=== PATIENT | male | born 1995 | race Caucasian/White ===

== ENCOUNTER 2022-09-26 02:36 | Emergency (ER) | payer BC, SELFPAY ==
[2022-09-26 02:42] VITALS: BP 134/98; PULSE 82; RESP 20; O2SAT 96; BMI 21.9
[2022-09-26] MEDS: KETOROLAC 30 MG/ML inj IM (03:04)
[2022-09-26 03:14] VITALS: RESP 20
--- NOTE | 2022-09-26 03:15 | ED_ITS ---
HPI - Dental/Oral General Date Seen: 09/26/22 Chief complaint: Dental/Oral/Mouth Injury/Pain Stated complaint: Mouth Pain Time Seen by Provider: 09/26/22 02:44 Source: patient Mode of arrival: ambulatory Limitations: no limitations History of Present Illness HPI Narrative: patient is a 27-year-old gentleman who suffers from right upper tooth pain, this is been for the last 36 hours, is not associated with any swelling, any problems with mouth opening, he did take some leftover hydrocodone he had at home, along with Tylenol ibuprofen with no rim prove mint of his pain. He tells me thinks he has a chipped tooth there, he presents the [place] f Teeth map: 1. A very carious tooth, that is old, there is no acute issue bleeding, s welling around the gingiv Onset (ago): day(s) Duration: constant Severity: severe Relieving factors: nothing Exacerbating factors: cold, heat and swallowing Context: history of dental caries and poor dental care Treatment prior to arrival: none Related Data Home Medications Medication Instructions Recorded Confirmed No Known Home Medications 09/26/22 09/26/22 Allergies Allergy/AdvReac Type Severity Reaction Status Date / Time No Known Drug Allergies Allergy Verified 09/26/22 02:53 Review of Systems Status of ROS: Reports: 6 or more systems reviewed and unremarkable except as noted in History and below [facility] Social History Smoking Status: Never smoker Do you use any of these nicotine containing products: None How often do you have a drink containing alcohol: monthly or less AUDIT-C Alcohol total score: 1 Non-prescribed substance use: denies use Exam Narrative: Exam Narrative: patient is seen in room 4, he appears to be bent over, there is no asymmetry of his face, mouth opening is normal, very carious tooth is seen, no swelling of the gingiva, swelling to his gums, suggestive of abscess. No lymphadenopathy in the a Const: Vital Signs, click to edit/add: Vital Signs - 24 hr 09/26/22 02:42 Pulse Rate [Bilate ral] 82 Respiratory Rate 20 Blood Pressure [Le ft Upper Arm] 134/98 H Pulse Oximetry 96 Oxygen Delivery Me thod Room Air Course Vital Signs Vital signs: Initial Vital Signs Temperature Source Temporal Artery Scan 09/26/22 02:42 Pulse Rate 82 09/26/22 02:42 Respiratory Rate 20 09/26/22 02:42 Blood Pressure 134/98 H 09/26/22 02:42 Blood Pressure Mean 110 09/26/22 02:42 Pulse Oximetry 96 09/26/22 02:42 Oxygen Delivery Method 09/26/22 02:42 Vital Signs Pulse Rate 82 09/26/22 02:42 Respiratory Rate 20 09/26/22 02:42 Blood Pressure 134/98 H 09/26/22 02:42 Pulse Oximetry 96 09/26/22 02:42 Oxygen Delivery Method 09/26/22 02:42 Pulse Rate 82 09/26/22 02:42 Respiratory Rate 20 09/26/22 02:42 Blood Pressure 134/98 H 09/26/22 02:42 Pulse Oximetry 96 09/26/22 02:42 Oxygen Delivery Method 09/26/22 02:42 MDM - Dental/Oral MDM Narrative Medical decision making narrative: patient is seen and assessed, I discussed with him that I can give him a shot of Toradol, put him on some antibiotics and he needs to follow up with the dentist tomorrow, review of the TOBACCO SIZER, shows the risk of 290. Medical Records Attestation: I reviewed the patient's medical records. Discharge Plan Discharge Clinical Impression: Toothache Patient Disposition: Home, Self-Care Condition: Stable Instructions: Toothache (ED) Additional Instructions: home rest call dentist tomorrow, make appointment to get the tooth fixed. Take antibiotics as directed, Tylenol ibuprofen as needed. Prescriptions: No Action No Known Home Medications Follow Up/Referrals: Joyec Patton MD [Staff Physician] - Stand Alone Forms: [facility] Info Instructions
== END 2022-09-26 03:17 | disposition home or self-care (01) ==
PROVIDERS: Emergency Provider Family Medicine
DX: K08.89 Other specified disorders of teeth and supporting structures (principal)
CPT/HCPCS: 96372; 99282; 99283; J1885

== ENCOUNTER 2023-03-10 12:43 | Emergency (ER) | payer BC, SELFPAY ==
[2023-03-10 13:05] VITALS: BP 132/90; PULSE 75; RESP 20; TEMP 36.9; O2SAT 99; BMI 21.3
--- NOTE | 2023-03-10 14:03 | CRLHL7_ITS ---
For Patients: As a result of the Century Cures Act, medical imaging exams and procedure reports are released immediately into your electronic medical record. You may view this report before your referring provider. If you have questions, please contact your health care provider. INDICATION: Epigastric pain TECHNIQUE: Axial images were obtained from the diaphragm to the pubic symphysis. Reformats were obtained in the coronal and sagittal plane. IV Contrast: 89 cc Isovue 370 Oral Contrast: None COMPARISON: None. FINDINGS: Lower chest: Unremarkable. Liver: Unremarkable. Normal in size and attenuation. No masses. Gallbladder and bile ducts: Unremarkable. No stones or inflammation. No biliary dilatation. Spleen: Unremarkable. Normal in size without mass. Pancreas: Unremarkable. No mass or inflammation. Adrenal glands: Unremarkable. No nodules. Kidneys: Unremarkable. No masses, stones, or hydronephrosis. Vasculature: Unremarkable. GI tract: Unremarkable. No dilated bowel or focal inflammation. Pelvis: Moderate bladder distention. Bones: Unremarkable for age. IMPRESSION: 1. No dilated bowel or localized inflammation. 2. Moderate bladder distention. Please note that all CT scans at this facility use dose modulation, iterative reconstruction, and/or weight-based dosing when appropriate to reduce radiation dose to as low as reasonably achievable. Dictated by Jd Murillo MD @ 03/10/2023 3:42:58 PM (Electronically Signed)
--- NOTE | 2023-03-10 14:04 | ED_ITS ---
HPI - Abdominal Pain General Chief Complaint: Abdominal Pain Stated Complaint: Abdominal pain Time Seen by Provider: 03/10/23 13:51 History of Present Illness HPI narrative: This 27-year-old male comes in reporting abdominal pain that began 2 days ago. He was at a [facility], 2 days ago then began to have abdominal pain yesterday morning. He states that the pain is rather constant. The pain is in the mid abdomen and upper abdomen. He does not report any nausea, vomit ing, lightheadedness, shortness of breath, dysuria, or altered bowel function. He has not had any fevers. He states that the pain seems to worsen when he stands up straight. Related Data Previous Rx's Medication Instructions Recorded ketorolac 10 mg tablet 10 mg PO Q8H 5 days #15 tabs 03/10/23 pantoprazole 20 mg tablet,delayed 20 mg PO DAILY #20 tabs 03/10/23 release (Protonix) Allergies Allergy/AdvReac Type Severity Reaction Status Date / Time No Known Drug Allergies Allergy Verified 03/10/23 14:46 Review of Systems Status of ROS Reports: 10 or more systems reviewed and unremarkable except as noted in History and below Narrative Constitutional: No fevers, no weight gain or loss. Eyes: No discharge. No vision changes. HENT: No congestion, no sore throat, no ear pain. Cardiovascular: No chest pain, no palpitations. Respiratory: No shortness of breath, no wheezes, no cough. Gastrointestinal: No vomiting, no diarrhea. Abdominal pain as described above. Genitourinary: No dysuria, no hematuria. Musculoskeletal: Normal range of motion. Skin: No rashes, no pruritis. Neurological: No dizziness, weakness, sensory change, speech change. Endo/Heme/Allergies: No bruising or bleeding. No polydipsia. Pysch: no suicidality, no anxiety, no insomnia. All other systems reviewed and are negative. PFSH PFS Social History Smoking Status: Never smoker Do you use any of these nicotine containing products: None How often do you have a drink containing alcohol: monthly or less AUDIT-C Alcohol total score: 1 Non-prescribed substance use: denies use Exam Narrative: Exam Narrative: Constitutional: Well-developed, well-nourished, no acute distress. HEENT: Normocephalic, atraumatic. Neck: Normal range of motion. Nontender. Supple. Heart: Regular. No murmurs. Normal rate. Intact distal pulses. Lungs: Clear to auscultation. No chest discomfort. No wheezes, rhonchi, or rales. Abdomen: Normal bowel sounds. Tenderness in the mid abdomen and upper epigast lamar region. No rebound tenderness. Genitalia: Deferred. Back: No midline tenderness. Normal range of motion. Extremities: Normal range of motion. No injury. Skin: Intact. No rash. Warm. No erythema or pallor. Neurologic: No altered sensation. No weakness. Alert and oriented. Psychiatric: No suicidality. No anxiety or depression. No insomnia. Nursing notes and vitals signs are reviewed. Const: Vital Signs, click to edit/add: Vital Signs - 24 hr 03/10/23 13:05 Temperature 98.4 F Pulse Rate [Right Pulse Oximeter] 75 Respiratory Rate 20 Blood Pressure [Ri ght Upper Arm] 132/90 H Pulse Oximetry 99 Oxygen Delivery Me thod Room Air Course Vital Signs Vital signs: Initial Vital Signs Temperature 98.4 F 03/10/23 13:05 Temperature Source Temporal Artery Scan 03/10/23 13:05 Pulse Rate 75 03/10/23 13:05 Pulse Rhythm Regular 03/10/23 13:05 Pulse Strength 3+ Normal 03/10/23 13:05 Respiratory Rate 20 03/10/23 13:05 Blood Pressure 132/90 H 03/10/23 13:05 Blood Pressure Mean 104 03/10/23 13:05 Blood Pressure Position Sitting 03/10/23 13:05 Pulse Oximetry 99 03/10/23 13:05 Oxygen Delivery Method Room Air 03/10/23 13:05 Vital Signs Temperature 98.4 F 03/10/23 13:05 Pulse Rate 75 03/10/23 13:05 Respiratory Rate 20 03/10/23 13:05 Blood Pressure 132/90 H 03/10/23 13:05 Pulse Oximetry 99 03/10/23 13:05 Oxygen Delivery Method Room Air 03/10/23 13:05 Temperature 98.4 F 03/10/23 13:05 Pulse Rate 75 03/10/23 13:05 Respiratory Rate 20 03/10/23 13:05 Blood Pressure 132/90 H 03/10/23 13:05 Pulse Oximetry 99 03/10/23 13:05 Oxygen Delivery Method Room Air 03/10/23 13:05 MDM - Abdominal Pain MDM Narrative Medical decision making narrative: This patient comes in with upper epigastric abdominal pain. An IV was established and labs are acquired along with CT imaging. These all returned with reassuring findings. The patient states that [place] this pain began. He was riding on a roller coaster that was very bumpy and he thinks he may have strained some muscles in his abdomen. Additionally he has some history of reflux symptoms. I did prescribe Protonix and Toradol for symptomatic relief. He is okay to be discharged home. He was reassured with lab and imaging results. Lab Data Labs: Lab Results 03/10/23 Range/Units 14:39 WBC 4.47 L (4.50-11.00) K/uL RBC 5.39 (4.30-5.90) m/uL Hgb 15.6 (13.5-17.5) gm/dL Hct 46.5 (37.0-53.0) % MCV 86 (80-100) fL MCH 29 (26-34) pg MCHC 34 (32-36) gm/dL RDW Coeff of Damián 12.3 (11.5-15.5) % Plt Count 232 (140-440) K/uL Neut % (Auto) 59.1 (42.0-72.0) % Lymph % (Auto) 25.3 (20-44) % [place] % (Auto) 10.7 (0.0-11.0) % Eos % (Auto) 4.5 (0.0-7.0) % Baso % (Auto) 0.4 (0.0-3.0) % Neut # (Auto) 2.60 (1.7-7.0) K/uL Lymph # (Auto) 1.10 (0.90-2.90) K/uL [place] # (Auto) 0.50 (0.00-0.90) K/UL Eos # (Auto) 0.20 (0.00-0.50) K/uL Baso # (Auto) 0.00 (0.00-0.30) K/uL Sodium 135 (135-149) mmol/L Potassium 3.8 (3.6-5.1) mmol/L Chloride 101 (96-114) mmol/L Carbon Dioxide 28 (20-32) mmol/L BUN 7 (5-24) mg/dL Creatinine 0.7 (0.5-1.5) mg/dL Estimated Creat Clear 186.30 Estimated GFR 131 ml/min Glucose 108 (60-115) mg/dL Calcium 9.4 (8.4-10.6) mg/dL Total Bilirubin 1.3 (0.1-1.5) mg/dL Direct Bilirubin 0.1 (0.0-0.5) mg/dL AST 24 (12-35) U/L ALT 19 (4-50) U/L Alkaline Phosphatase 78 (40-150) U/L Total Protein 7.7 (6.0-8.3) g/dL Albumin 4.7 (3.3-5.0) g/dL Lipase 42 (23-300) U/L Imaging Data CT scan - abdomen: Radiologist's impression: 1. No dilated bowel or localized inflammation. 2. Moderate bladder distention. Discharge Plan Discharge Clinical Impression: Abdominal pain Patient Disposition: Home, Self-Care Condition: Stable Additional Instructions: Take medication as needed and directed. Increase activity and diet as tolerated. Follow up with MD or return if worsening. Prescriptions: New ketorolac 10 mg tablet 10 mg PO Q8H 5 Days Qty: 15 0RF pantoprazole [Protonix] 20 mg tablet,delayed release (DR/EC) 20 mg PO DAILY Qty: 20 2RF Follow Up/Referrals: Provider,Not a Local [Primary Care Provider] - Stand Alone Forms: [facility] Info Instructions
[2023-03-10 14:54] LABS: Basophils Percent Auto 0.4 % (0.0-3.0); Eosinophils Percent Auto 4.5 % (0.0-7.0); Hematocrit 46.5 % (37.0-53.0); Hemoglobin* 15.6 gm/dL (13.5-17.5); Lymphocytes Percent Auto 25.3 % (20-44); Mean Corpuscular HGB Conc 34 gm/dL (32-36); Mean Corpuscular Hemoglobin 29 pg (26-34); Mean Corpuscular Volume 86 fL (80-100); Monocytes Percent Auto 10.7 % (0.0-11.0); Neutrophils Percent Auto 59.1 % (42.0-72.0); Platelet Count* 232 K/uL (140-440); RDW Coefficient of Variation % 12.3 % (11.5-15.5); Red Blood Count 5.39 m/uL (4.30-5.90); White Blood Count* 4.47 K/uL (4.50-11.00)
[2023-03-10 14:58] LABS: Slide Review Reflex No
[2023-03-10 15:16] LABS: Albumin* 4.7 g/dL (3.3-5.0); Chloride* 101 mmol/L (96-114); Sodium* 135 mmol/L (135-149)
[2023-03-10 15:17] LABS: Potassium* 3.8 mmol/L (3.6-5.1)
[2023-03-10 15:19] LABS: Alkaline Phosphatase* 78 U/L (40-150); Aspartate Amino Transferase* 24 U/L (12-35); Bilirubin Direct* 0.1 mg/dL (0.0-0.5); Bilirubin Total* 1.3 mg/dL (0.1-1.5); Blood Urea Nitrogen* 7 mg/dL (5-24); Calcium* 9.4 mg/dL (8.4-10.6); Carbon Dioxide* 28 mmol/L (20-32); Creatinine* 0.7 mg/dL (0.5-1.5); Estimated Glomerular Filt Rate 131 ml/min; Glucose* 108 mg/dL (60-115); Lipase* 42 U/L (23-300); Total Protein* 7.7 g/dL (6.0-8.3)
[2023-03-10 15:20] LABS: Alanine Aminotransferase* 19 U/L (4-50)
== END 2023-03-10 16:50 | disposition home or self-care (01) ==
PROVIDERS: Emergency Provider Emergency Medicine Emergency Medical Services
DX: R10.9 Unspecified abdominal pain (principal)
CPT/HCPCS: 36415; 74177; 80048; 80076; 83690; 85025; 99283; 99284; Q9967

== ENCOUNTER 2024-04-13 19:11 | Outpatient (CLI) | payer OTHER, SELFPAY ==
--- OUTSIDE RECORDS SUMMARY | 2024-04-13 19:16 | XMS_ITS | Clinical Summary ---
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 Immunizations Name Administration Dates Next Due COVID-19 vaccine (Moderna 100mcg/0.5mL) PF, MDV 07/09/2021 DTaP 04/08/2002, 8,1997,08/08,1997 HIB PRP-T (ActHIB,Hiberix) 07/10/1998,,1997,06/07 HPV 9 (Gardasil 9) 12/12/2022 Hepatitis A (Peds) 02/10/2009,01/29/2008 Hepatitis B (Peds) 01/05/1998,1997, 997 Influenza, IIV4 07/23/2018 MMR 04/08/2002,04/06/1998 Meningococcal Vaccine (Menveo) 04/23/2010 Oral Polio Vaccine 04/08/2002, 8,1997,06/07 Tdap 11/21/2018,04/23/2010 Varicella Vaccine 01/29/2008,10/02/1998 Family History Medical History Relation Name Comments Heart Disease Father Hyperlipidemia Father Cancer-breast Maternal Grandmother Diabetes Paternal Grandfather Diabetes Paternal Grandmother Heart Disease Paternal Grandmother Relation Name Status Comments Father Maternal Grandmother Paternal Grandfather Paternal Grandmother Social History Tobacco Use Types Packs/Day Years Used Date Smoking Tobacco: Never Smokeless Tobacco: Never Tobacco Cessation:Counseling Given: Yes Alcohol Use Standard Drinks/Week Comments Yes 4 (1 standard drink = 0.6 oz pur e alcohol) PHQ-2 Answer Date Recorded PHQ-2 TOTAL SCORE 0 04/19/2022 Social Connections Answer Date Recorded Frequency of Communication with Friends and Fami ly 0 10/28/2023 Alcohol Use Answer Date Recorded How often do you have a drink containing alcohol ? 2 12/12/2022 How many drinks containing a lcohol do you have on a typical day when you are drinking? 1 12/12/2022 How often do you have five or more drinks on one occasion? 0 12/12/2022 Financial Resource Strain Answer Date R ecorded Difficulty of Paying Living Expenses 3 10/28/2023 Difficulty of Paying Living Expenses Not on file 10/28/2023 Food Insecurity Answer Date Recorded Worried About Running Out of Food in the Last Ye ar 1 10/28/2023 Transportation Needs Answer Date Record ed Lack of Transportation (Medical) 1 10/28/2023 Housing Stability Answer Date Recorded Unable to Pay for Housing in the Last Year 1 10/28/2023 Sex and Gender Information Value Date Recorded Sex Assigned at Not on file Gender Identity Not on file Sexual Orientation Not on file Obstetrics History Last Filed Vital Signs Vital Sign Reading Time Taken Comments Blood Pressure 111/58 12/06/2023 3:08 PM CDT Pulse 96 12/06/2023 3:08 PM CDT Temperature 38.8 ??C (101.9 ??F) 12/06/2023 3:08 PM C DT Respiratory Rate 20 12/06/2023 3:08 PM CDT Oxygen Saturation 98% 12/06/2023 3:08 PM CDT Inhaled Oxygen Concentration - - Weight 80.7 kg (178 lb) 12/06/2023 3:08 PM CDT Height 195.6 cm (6' 5) 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 Body Mass Index 21.11 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 Plan of Treatment Health Maintenance Due Date Last Done Comments Depression screening for age 12+ 04/19/2023 04/19/2022, 06/01/2020, 03/23/2020, Additional history exists COVID-19 vaccine series (2 - 2022-24 season) 2023 07/09/2021 Influenza for age 9-49 05/23/2024 07/23/2018 BMI (ht and wt on same day) for age 18+ 10/28/2024 10/28/2023, 06/01/2020, 03/23/2020, Additional history exists Tetanus booster 11/21/2028 11/21/2018, 04/23/2010 Tdap Completed 11/21/2018, 04/23/2010 HIV for age 15-65 Completed 12/12/2022 Hepatitis C screening for age 18-79 Completed 12/12/2022 Pneumococcal series for age 6-64 Aged Out No longer eligible based on patient's age to complete this topic Procedures Procedure Name Priority Date/Time Associated Diagnosis Comments LC HIV-1/O/2, 4TH GENERATION Routine 12/12/2022 11:45 AM CDT Screening for STD (sexually transmitted disease) LC HCV ANTIBODY RFX TO QUANT PCR Routine 12/12/2022 11:45 AM CDT Screening for STD (sexually transmitted disease) from Last 3 Months or Most Recently Relevant to Health Maintenance Results * LC HCV ANTIBODY RFX TO QUANT PCR (12/12/2022 11:45 AM CDT) HCV Ab Non Reactive Non Reactive 12/14/2022 11:08 AM CDT [facility] Blood BLOOD SPECIMEN / Unknown Venipuncture / Unknown 12/12/2022 11:45 AM CDT 12/12/2022 11:48 AM CDT Narrative [facility] - 12/14/2022 11:08 AM CDT Performed at: ??[address] ??[id number] Weight Loss Physician: Omar Stephenson MD, Phone: ??[phone] Brian Tang DO LABORATORY [facility] ([facility]) [address] [place] [address], * LC HIV-1/O/2, 4TH GENERATION (12/12/2022 11:45 AM CDT) HIV Scr 4th Gen Non Reactive Non Reactive 12/14/2022 12:07 PM CDT [facility] ([facility] Comment: HIV Negative HIV-1/HIV-2 antibodies and HIV-1 p24 antigen were NOT detected. There is no laboratory evidence of HIV infection. Blood BLOOD SPECIMEN / Unknown Venipuncture / Unknown 12/12/2022 11:45 AM CDT 12/12/2022 11:48 AM CDT Narrative [facility] ([facility]) - 12/14/2022 12:07 PM CDT Performed at: [address] ??[id number] Weight Loss Physician: Omar Stephenson MD, Phone: ??[phone] Brian Tang DO LABORATORY [facility] ([facility]) [address] [place] [address], from Last 3 Months or Most Recently Relevant to Health Maintenance Care Teams Repairer Relationship Specialty Start Date End Date Pcp, No . PCP - General 06/15/21
--- OUTSIDE RECORDS SUMMARY | 2024-04-13 19:16 | XMS_ITS | Continuity of Care Document ---
Author Organization [facility] Address [address] [address] [place] [address] Phone Care Team Providers Care Clean Out Driller Name Role Phone John Holt MD Unavailable Unavailable Advance Directives Directive Yes / No Effective Date File Name No Information Encounters Encounter Description Practice Location Reason(s) For Visit Diagnoses Date Provider Providers Copied on Encounter [facility], [address] [address], [place], [place], [id number], tel:[phone] [facility] No Information Yanet Lopez. [address] [address], [place], [place], [id number], [place]. tel:[phone] [facility] [address], [address] [address], [place], [place], [id number], [place] tel:[phone] [facility] No Information Yanet Lopez. [address], [id number], [place]. tel:[phone] Family History Family Member Type Diagnosis Age At Onset No Information Immunizations Vaccine Date Status Comments tetanus toxoid, reduced diphtheria toxoid, and acellular pertussis vaccine, adsorbed administered Note: [facility] b i-directional interface ; Source: Other Registry Fluzone Quad 6mo or older administered Note: [facility] bi-direct ional interface ; Source: Other Registry meningococcal polysaccharide (groups A, C, Y and W-135) diphtheria toxoid conjugate vaccine (MCV4P) administered Note: [facility] bi-direct ional interface ; Source: Other Registry tetanus toxoid, reduced diphtheria toxoid, and acellular pertussis vaccine, adsorbed administered Note: [facility] b i-directional interface ; Source: Other Registry Havrix pediatric administered Note: [facility] bi-directional interface ; Source: Other Registry varicella virus vaccine administered Note : [facility] bi-directional interface ; Source: Other Registry Havrix pediatric administered Note: [facility] bi-directional interface ; Source: Other Registry Payers Payer name Insurance type Covered green party ID Authoriza tion(s) No Information Social History Type Description Quantity Date Captured Comments Sex Male Smoking Status No Information Chief Complaint And Reason For Visit No Information Reason For Referral Reason For Referral No Information History Of Present Illness Encounter Date Complaint History Of Prese nt Illness No Information Functional Status Date Functional Assessmen t No Information Instructions Date Instruction Additional Infor mation No Information Assessments Type Assessment Date No Information Patient Care Teams Name Effective Dates (start - stop) Status Members No Information
== END 2024-04-13 19:12 | disposition home or self-care (01) ==
LOC: NFLDUCREF 19:14
PROVIDERS: Visit Provider Nurse Practitioner Family
DX: R19.7 Diarrhea, unspecified (principal)
CPT/HCPCS: 87635